=== PATIENT | male | born 1960 | race Caucasian/White ===

== ENCOUNTER 2021-10-28 17:10 | Observation (INO) ==
[2021-10-28] MEDS ORDERED: Morphine Sulfate 2 MG/ML SYRINGE IVP ONE ×2 (18:13→21:03)
[2021-10-28] MEDS: Nitroglycerin 0.4 MG TAB.SUBL SL SCH ×3 (18:47→23:58)
[2021-10-28 18:48] LABS: Hemoglobin 11.5 g/dL (12.9-16.9); Immature Granulocytes % 0.2 % (0-4); Mean Corpuscular Volume 88.4 fL (83.0-100.0); Mean Platelet Volume 13.6 fL (9.4-12.4)
[2021-10-28 18:49] LABS: Basophils # 0.1 K/mcL (0.0-0.2); Basophils % 0.8 %; Eosinophils # 0.5 K/mcL (0.0-0.6); Eosinophils % 5.4 %; Hematocrit 35.8 % (37.5-50.1); Immature Platelets 17.8 % (1.1-6.1); Lymphocytes # 2.5 K/mcL (0.6-4.6); Mean Corpuscular HGB Conc 32.1 g/dL (31.6-35.5); Mean Corpuscular Hemoglobin 28.4 pg (28.0-33.3); Monocytes # 1.1 K/mcL (0.0-1.3); Monocytes % 11.2 %; Neutrophils # 5.5 K/mcL (1.6-8.9); Platelet Count 148 K/mcL (140-400); Red Blood Count 4.05 M/mcL (4.19-5.50); Red Cell Distribution Width 15.1 % (11.5-14.5); Segmented Neutrophils % 56.4 %; White Blood Count 9.7 K/mcL (4.3-11.1)
[2021-10-28 18:59] LABS: VBG HCO3 27 mEq/L (21-27); VBG PCO2 42 mmHg (41-51); VBG PH 7.42 pH Units (7.32-7.42); VBG PO2 103 mmHg (25-50)
[2021-10-28 19:28] LABS: Alanine Aminotransferase 13 Units/L (7-52); Albumin 3.7 g/dL (3.5-5.7); Albumin/Globulin Ratio 1.4 (1.1-2.2); Alkaline Phosphatase 81 Units/L (34-104); Aspartate Amino Transferase 18 Units/L (13-39); BUN/Creatinine Ratio 16 (6-26); Bilirubin,Indirect 0.3 mg/dL (0.0-1.0); Bilirubin,Total 0.3 mg/dL (0.3-1.0); Blood Urea Nitrogen 14 mg/dL (8-23); Calcium 8.6 mg/dL (8.6-10.3); Carbon Dioxide 27 mEq/L (23-29); Chloride 106 mEq/L (98-107); Globulin 2.7 g/dL (2.4-3.5); Glucose 96 mg/dL (70-105); Lipase 30 Units/L (11-82); Osmolality,Calculated 286 (280-300); Sodium 138 mEq/L (136-145); Total Protein 6.4 g/dL (6.4-8.9); Troponin I < 0.03 ng/mL (< 0.04); eGFR For African Americans > 60 (> 60); eGFR For Non-African Americans > 60 (> 60)
[2021-10-28] MEDS ORDERED: methocarbamoL 500 MG TABLET PO ONE (21:07)
[2021-10-28] MEDS ORDERED: Aspirin 325 MG TABLET PO ONE (23:05)
[2021-10-29] MEDS ORDERED: Perflutren Lipid Microsphere 1.3 ML in 0.9 % Sodium Chloride 8.7 ML IVP PRN (01:49)
[2021-10-29] MEDS ORDERED: Ondansetron 4 MG/2 ML VIAL IVP PRN (01:54)
[2021-10-29] MEDS ORDERED: Naloxone 0.4 MG/ML INJ IVP PRN (01:54)
[2021-10-29] MEDS ORDERED: Acetaminophen 325 MG TABLET PO PRN (01:54)
[2021-10-29] MEDS: Famotidine 20 MG/2 ML VIAL IVP SCH ×2 (02:16→14:02)
[2021-10-29] MEDS: Morphine Sulfate 2 MG/ML SYRINGE IVP PRN ×2 (02:34→21:04)
[2021-10-29 02:36] LABS: Troponin I < 0.03 ng/mL (< 0.04)
[2021-10-29 05:18] LABS: Chol/HDL Ratio 2.3 (0-4.9); Cholesterol 100 mg/dL (< 200); HDL Cholesterol 44 mg/dL (40-59); Iron 58 mcg/dL (65-175); LDL Cholesterol,Calculated 34 mg/dL (< 100); Magnesium 1.8 mg/dL (1.6-2.6); Triglycerides 111 mg/dL (< 150)
[2021-10-29 05:25] LABS: Hematocrit 37.8 % (37.5-50.1); Hemoglobin 12.1 g/dL (12.9-16.9); Immature Platelets 21.4 % (1.1-6.1); Mean Corpuscular Hemoglobin 28.2 pg (28.0-33.3); Mean Corpuscular Volume 88.1 fL (83.0-100.0); Mean Platelet Volume 14.2 fL (9.4-12.4); Red Blood Count 4.29 M/mcL (4.19-5.50); Red Cell Distribution Width 15.3 % (11.5-14.5); White Blood Count 10.1 K/mcL (4.3-11.1)
[2021-10-29 05:31] LABS: BUN/Creatinine Ratio 16 (6-26); Blood Urea Nitrogen 15 mg/dL (8-23); Calcium 8.8 mg/dL (8.6-10.3); Carbon Dioxide 27 mEq/L (23-29); Chloride 107 mEq/L (98-107); Glucose 126 mg/dL (70-105); Osmolality,Calculated 292 (280-300); Potassium 3.8 mEq/L (3.5-5.1); Sodium 140 mEq/L (136-145); eGFR For African Americans > 60 (> 60); eGFR For Non-African Americans > 60 (> 60)
[2021-10-29 05:34] LABS: Thyroid Stimulating Hormone 1.483 mcIU/mL (0.340-5.600)
[2021-10-29 05:40] LABS: Ferritin 9 ng/mL (20-250)
[2021-10-29 05:57] LABS: Folate 16.3 ng/mL (3.0-16.0)
[2021-10-29] MEDS: *HR* Heparin 5,000 UNIT/ML VIAL SQ SCH ×3 (06:03→21:00)
[2021-10-29 06:05] LABS: Bilirubin,Urine Negative (Negative); Blood,Urine Negative (Negative); Clarity,Urine Clear (Clear); Color,Urine Light-Yellow (Yellow); Glucose,Urine (UA) Normal (Normal); Ketones,Urine Negative (Negative); Leukocyte Esterase,Urine Negative (Negative); Nitrite,Urine Negative (Negative); PH,Urine 6.5 pH Units (5.0-8.0); Protein,Urine Trace mg/dL (Neg-Trace); Specific Gravity,Urine 1.025 (1.010-1.025); Urobilinogen,Urine Normal (Normal)
[2021-10-29] MEDS ORDERED: Regadenoson 0.4 MG/5 ML SYRINGE IVP ONE (07:07)
[2021-10-29] MEDS: Nitroglycerin 0.4 MG TAB.SUBL SL SCH ×3 (07:19→07:20)
[2021-10-29] MEDS: hydroCHLOROthiazide 25 MG TABLET PO SCH (10:04)
[2021-10-29] MEDS: Aspirin Enteric Coated 81 MG Tablet PO SCH (10:04)
[2021-10-29] MEDS: Multivit/Ca/Min/Fe/FA 1 TAB TABLET PO SCH (10:05)
[2021-10-29] MEDS: Cholecalciferol (D-3) 1,000 UNIT (25MCG) TABLET PO SCH (10:05)
[2021-10-29 10:19] LABS: Estimated Average Glucose 103 mg/dl; Hemoglobin A1C 5.2 %
[2021-10-29] MEDS ORDERED: lisinopriL 5 MG TABLET PO SCH (12:15)
[2021-10-29] MEDS: Nitroglycerin 0.4 MG TAB.SUBL SL PRN ×2 (14:19→14:24)
[2021-10-29] MEDS ORDERED: methocarbamoL 500 MG TABLET PO ONE (21:04)
[2021-10-30] MEDS: Famotidine 20 MG/2 ML VIAL IVP SCH (02:56)
[2021-10-30 04:39] LABS: Hematocrit 37.3 % (37.5-50.1); Mean Corpuscular HGB Conc 32.2 g/dL (31.6-35.5); Mean Corpuscular Hemoglobin 28.1 pg (28.0-33.3); Mean Corpuscular Volume 87.4 fL (83.0-100.0); Mean Platelet Volume 13.7 fL (9.4-12.4); Platelet Count 151 K/mcL (140-400); Red Blood Count 4.27 M/mcL (4.19-5.50); Red Cell Distribution Width 15.2 % (11.5-14.5)
[2021-10-30 05:23] LABS: BUN/Creatinine Ratio 22 (6-26); Blood Urea Nitrogen 17 mg/dL (8-23); Calcium 8.7 mg/dL (8.6-10.3); Carbon Dioxide 28 mEq/L (23-29); Chloride 104 mEq/L (98-107); Glucose 99 mg/dL (70-105); Osmolality,Calculated 290 (280-300); Sodium 139 mEq/L (136-145); eGFR For African Americans > 60 (> 60); eGFR For Non-African Americans > 60 (> 60)
[2021-10-30] MEDS: *HR* Heparin 5,000 UNIT/ML VIAL SQ SCH (06:21)
[2021-10-30] MEDS: Aspirin Enteric Coated 81 MG Tablet PO SCH (08:27)
[2021-10-30] MEDS: Multivit/Ca/Min/Fe/FA 1 TAB TABLET PO SCH (08:27)
[2021-10-30] MEDS: Cholecalciferol (D-3) 1,000 UNIT (25MCG) TABLET PO SCH (08:27)
[2021-10-30] MEDS: hydroCHLOROthiazide 25 MG TABLET PO SCH (08:28)
[2021-10-30 11:10] VITALS: BP 152/82; PULSE 63; TEMP 98.1; O2SAT 96
== END 2021-10-30 12:00 | disposition home or self-care (01) ==
LOC: 3BNU 17:10 → EMEROOARM 17:10 → 3BNU 10-29 00:40
PROVIDERS: ADMIT Internal Medicine; ATTEND Internal Medicine